=== PATIENT | male | born 1995 | race Caucasian/White ===

== ENCOUNTER 2021-06-05 01:26 | Outpatient (CLI) | payer BC, SELFPAY ==
[2021-06-05 08:14] LABS: Calculated LDL 115 mg/dL (<100); Cholesterol 178 mg/dL (<200); HDL Cholesterol 39 mg/dL (40-60); Triglyceride 121 mg/dL (<150)
[2021-06-05 09:26] LABS: Hemoglobin A1C 4.9 % (<5.7)
== END 2021-06-05 01:27 | disposition home or self-care (01) ==
LOC: LBO 01:26
PROVIDERS: PCP Nurse Practitioner Family; Visit Provider Nurse Practitioner Family
DX: Z13.220 Encounter for screening for lipoid disorders (principal); Z13.1 Encounter for screening for diabetes mellitus
CPT/HCPCS: 36415; 80061; 83036